=== PATIENT | female | born 1995 | race Caucasian/White ===

== ENCOUNTER 2017-12-11 15:44 | Emergency (ER) | payer SELFPAY ==
[2017-12-11] MEDS ORDERED: ACETAMINOPHEN 325 MG TABLET (FP) PO ONE (15:55)
[2017-12-11] MEDS ORDERED: IBUPROFEN 600 MG TABLET (FP) PO ONE ×2 (15:55→16:09)
[2017-12-11 15:59] VITALS: BP 144/62; TEMP 99.6; BMI 20.3
--- NOTE | 2017-12-11 16:06 | PDOC ---
History of Present Illness <Stan Pike - Last Filed: 12/11/17 19:18> - History of Present Illness Initial Comments: 12/11/17 16:05 The patient is a 22 year old female with no significant PMH who presents to our ED c/o acute onset of chills, body aches and subjective fever. H/o non- productive cough last week. Denies any nausea/vomiting, constipation/diarrhea, dysuria/hematuria. 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 No sick contacts @ home, no recent travel. Has not received the influenza vaccine. <Sara Babb - Last Filed: 12/15/17 12:14> - General Chief Complaint: Cold Symptoms Stated Complaint: COLD Time Seen by Provider: 12/11/17 15:49 Past History <Stan Pike - Last Filed: 12/11/17 19:18> - Past Medical History COPD: No - Suicide/Smoking/Psychosocial Hx Smoking History: Never smoked Have you smoked in the past 12 months: No Information on smoking cessation initiated: No Hx Alcohol Use: No Drug/Substance Use Hx: No Substance Use Type: None <Sara Babb - Last Filed: 12/15/17 12:14> - Past Medical History Allergies/Adverse Reactions: Allergies Allergy/AdvReac Type Severity Reaction Status Date / Time No Known Allergies Allergy Verified 12/11/17 15:45 Home Medications: Ambulatory Orders NK [No Known Home Medication] 12/11/17 Review of Systems - Review of Systems Constitutional: Yes: Fever HEENTM: No: Blurred Vision, Double Vision Respiratory: Yes: Cough. No: Shortness of Breath Cardiac (ROS): No: Chest Pain, Lightheadedness, Palpitations, Chest Tightness ABD/GI: No: Constipated, Diarrhea, Nausea, Vomiting <Sara Babb - Last Filed: 12/15/17 12:14> *Physical Exam - Vital Signs Last Vital Signs Temp Pulse Resp BP Pulse Ox 99.6 F 122 H 25 H 144/62 100 12/11/17 15:45 12/11/17 17:55 12/11/17 15:45 12/11/17 15:45 12/11/17 15:45 <Stan Pike - Last Filed: 12/11/17 19:18> - Vital Signs Last Vital Signs Temp Pulse Resp BP Pulse Ox 99.6 F 131 H 25 H 144/62 100 12/11/17 15:45 12/11/17 15:45 12/11/17 15:45 12/11/17 15:45 12/11/17 15:45 - Physical Exam General Appearance: Yes: Nourished, Thin HEENT: positive: EOMI, MELVINA, TM Dull. negative: TM Bulging, TM Erythema Neck: positive: Trachea midline, Supple Respiratory/Chest: positive: Lungs Clear, Normal Breath Sounds Cardiovascular: positive: S1, S2, Tachycardia. negative: JVD, Murmur Gastrointestinal/Abdominal: positive: Normal Bowel Sounds, Soft Lymphatic: negative: Adenopathy Extremity: positive: Normal Capillary Refill, Normal Inspection Integumentary: positive: Normal Color, Dry, Warm Neurologic: positive: Fully Oriented, Alert <SkinnySara - Last Filed: 12/15/17 12:14> Heart Score/ECG Review - ECG Impressions Comment:: 12/11/17 19:04 Sinus Tach HR 123, no MARIA D/STD/TWI -non ischemic ECG <SkinnySara - Last Filed: 12/15/17 12:14> ED Treatment Course - LABORATORY CBC & Chemistry Diagram: 12/11/17 17:30 12/11/17 17:30 - ADDITIONAL ORDERS Additional order review: Laboratory Results 12/11/17 12/11/17 17:30 16:29 Sodium 134 L Potassium 3.3 L Chloride 106 Carbon Dioxide 24 Anion Gap 4 L BUN 13 Creatinine 0.9 Creat Clearance w eGFR > 60 Random Glucose 91 Calcium 7.8 L Total Bilirubin 0.6 AST 18 ALT 12 Alkaline Phosphatase 31 L Total Protein 6.2 L Albumin 3.5 Urine Color Yellow Urine Appearance Clear Urine pH 6.5 Ur Specific [place] 1.020 Urine Protein Negative Urine Glucose (UA) Negative Urine Ketones Negative Urine Blood 2+ H Urine Nitrite Negative Urine Bilirubin Negative Urine Urobilinogen 0.2 Ur Leukocyte Esterase 1+ H Urine RBC 5-10 Urine WBC 2-5 Ur Epithelial Cells Few Urine Bacteria 2+ Urine HCG, Qual Negative 12/11/17 16:29 Influenza Types A,B Antigen - Final Nasopharyngeal Swab - Final 12/11/17 17:30 RBC 3.39 L MCV 89.1 MCHC 33.3 RDW 13.5 MPV 8.4 Neutrophils % No Result Required. Lymphocytes % No Result Required. - Medications Given in the ED: ED Medications Discontinued Medications Generic Name Dose Route Start Last Admin Trade Name Derek PRN Reason Stop Dose Admin Acetaminophen 650 mg 12/11/17 15:55 12/11/17 16:43 Tylenol - PO 12/11/17 15:56 650 mg ONCE ONE Administration Ibuprofen 600 mg 12/11/17 15:55 12/11/17 16:41 Motrin - PO 12/11/17 15:56 600 mg ONCE ONE Administration Sodium Chloride 1,000 ml 12/11/17 16:11 12/11/17 16:44 Normal Saline - IV 12/11/17 16:12 1,000 ml ONCE ONE Administration Sodium Chloride 1,000 ml 12/11/17 17:16 12/11/17 17:37 Normal Saline - IV 12/11/17 17:17 1,000 ml ONCE ONE Administration Sodium Chloride 1,000 ml 12/11/17 19:01 12/11/17 19:12 Normal Saline - IV 12/11/17 19:02 1,000 ml ONCE ONE Administration <Stan Pike - Last Filed: 12/11/17 19:18> - LABORATORY CBC & Chemistry Diagram: 12/11/17 17:30 12/11/17 17:30 <Sara Babb - Last Filed: 12/15/17 12:14> Medical Decision Making - Medical Decision Making 12/11/17 16:06 22 year old female with acute onset of subjective fever, myalgias. H/o cough, notes close contact with multiple people in workplaces. Tachycardic (130's) @ presentation. Frontal diagnosis: Influenza, Viral URI, less likely PE given clinical history and presentation. Will test for influenza, administer fluids, CXR, UA/urine culture. Reassess. 12/11/17 17:30 CXR negative for acute infiltrate/consolidation/effusion Patient reassessed @ bedside Remains Tachycardic (120's), tachypnea resolved Will obtain basic labs to r/o anemia, active infection + ECG 12/11/17 18:24 Remains tachycardic (120's) ECG documented in EMR section - non-ischemic CBC shows no anemia, CMP shows mild hypokalemia (3.3) - will encourage patient to increase K+ food intake 12/11/17 19:01 Patient remains tachycardic. Bedside U/S shows good contractility, hyperdynamic, no cardiac effusion. Will administer additional 1 L IV NS. UA pending. 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 Rolando Vilchis to establish primary care. It is very important that you see a doctor at least yearly for annual evaluation. Return to the Emergency Department for any new/worsening/concerning symptoms. - Post Discharge Activity Forms/Work/School Notes: Back to Work
[2017-12-11] MEDS ORDERED: ACETAMINOPHEN 325 MG TABLET (FP) ONE (16:08)
[2017-12-11] MEDS ORDERED: SODIUM CHLORIDE 0.9% 500 ML INFUS.BAG IV ONE ×3 (16:11→19:01)
--- NOTE | 2017-12-11 16:20 | PDOC ---
Attending Attestation - Resident Resident Name: Sara Babb - ED Attending Attestation I have performed the following: I have examined & evaluated the patient, The case was reviewed & discussed with the resident, I agree w/resident's findings & plan, Exceptions are as noted - HPI HPI: 12/11/17 16:16 22 F with no pmxh here with c/o cough runny nose, body aches. states runny nose began night prior, suddenly today just prior to arrival developed deep myalgia and achy bones. feels chilled. cough dry. nonproductive. no sick contacts. no rash. no travel. no urinary sxs. - Physicial Exam PE: 12/11/17 16:19 pt awake alert lungs clear bilaterally heart reg tachycardia. abd soft ntnd. ext wwp no edema. skin no rash. nuero awake alert - Medical Decision Making 12/11/17 16:19 differential uti, pneumonia, flu, other viral syndrome. plan labs ivf, cxr ua. ucg. antipyretics and fever control 12/11/17 16:33 cxr negative. 12/11/17 19:00 pt states she is feeling much better. heart rate 116, temp improved. focused ed TTE , indication tachycardia flu r/o pericardial effusion four views obtained, no pericardial effusion. good contractility. impression: normal tte. *DC/Admit/Observation/Transfer Diagnosis at time of Disposition: Viral syndrome - Discharge Dispostion Disposition: HOME Condition at time of disposition: Good - Referrals Referrals: Deng Marshall MD [Staff Physician] - - Patient Instructions Printed Discharge Instructions: How to Avoid a Cold or Flu, DI for Viral Upper Respiratory Infection -- Adult Additional Instructions: Please make an appointment with Dr. Rolando Vilchis to establish primary care. It is very important that you see a doctor at least yearly for annual evaluation. Return to the Emergency Department for any new/worsening/concerning symptoms. - Post Discharge Activity Forms/Work/School Notes: Back to Work Heart Score/ECG Review #1 ECG reviewed & interpreted by me at: 18:42 General ECG Interpretation: Normal Intervals, No acute ischemic changes Compared to previous ECG there are: Other (sinus tachycardia. 123)
[2017-12-11 16:48] LABS: PH,URINE 6.5 (4.5-8); URINE APPEARANCE Clear; URINE BILIRUBIN Negative (NEGATIVE); URINE COLOR Yellow; URINE GLUCOSE (UA) Negative (NEGATIVE); URINE KETONE Negative (NEGATIVE); URINE LEUK ESTERASE 1+ (NEGATIVE); URINE NITRITE Negative (NEGATIVE); URINE PROTEIN Negative (NEGATIVE); URINE UROBILINOGEN 0.2 (0.2-1.0)
[2017-12-11 16:55] LABS: HCG,QUALITATIVE URINE Negative
[2017-12-11 17:07] LABS: EPI CELLS FEW /HPF; URINE BACTERIA 2+ /hpf (NEGATIVE)
[2017-12-11 17:49] LABS: HEMATOCRIT 30.2 % (32.4-45.2); HEMOGLOBIN 10.1 GM/dl (10.7-15.3); MCH 29.7 pg (25.7-33.7); MCHC 33.3 g/dl (32.0-36.0); MEAN CELL VOLUME 89.1 fl (80-96); MEAN PLT VOLUME 8.4 fl (7.5-11.1); PLATELET COUNT 211 K/MM3 (134-434); RBC 3.39 M/mm3 (3.60-5.2); RDW 13.5 % (11.6-15.6); WHITE BLOOD COUNT 9.2 K/mm3 (4.0-10.8)
[2017-12-11 17:56] VITALS: PULSE 122
[2017-12-11 18:07] LABS: ALBUMIN 3.5 g/dl (3.5-5.0); ALK PHOS 31 U/L (32-92); ANION GAP 4 MMOL/L (8-16); BILIRUBIN,TOTAL 0.6 mg/dl (0.2-1.0); BLOOD UREA NITROGEN 13 mg/dl (7-18); CALCIUM 7.8 mg/dl (8.4-10.2); CHLORIDE 106 mmol/L (98-107); CO2 24 mmol/L (22-28); CREATININE 0.9 mg/dl (0.6-1.3); GLUCOSE,RANDOM 91 mg/dl (74-106); POTASSIUM 3.3 mmol/L (3.5-5.1); SGOT/AST 18 U/L (10-42); SGPT/ALT 12 U/L (10-40); SODIUM 134 mmol/L (136-145); TOT PROT 6.2 g/dl (6.4-8.3)
[2017-12-11 18:55] LABS: PLATELET ESTIMATE ADEQUATE
--- NOTE | 2017-12-12 12:18 | EKG ---
Test Reason : Blood Pressure : / mmHG Vent. Rate : 123 BPM Atrial Rate : 123 BPM P-R Int : 136 ms QRS Dur : 074 ms QT Int : 312 ms P-R-T Axes : 059 075 039 degrees QTc Int : 446 ms SINUS TACHYCARDIA OTHERWISE NORMAL ECG NO PREVIOUS ECGS AVAILABLE Confirmed by YE WILLIAM MD ([id number]) on 12/12/2017 12:18:32 PM Referred By: MD MASCORRO Confirmed By:YE WILLIAM MD
== END 2017-12-11 19:25 | disposition home or self-care (01) ==
LOC: FER 15:44
PROC: 3E0337Z Introduction of Electrolytic and Water Balance Substance into Peripheral Vein, Percutaneous Approach (ICD-10-PCS; principal; 2017-12-11)
DX: B34.9 Viral infection, unspecified (principal)
CPT/HCPCS: 36415; 71046-TC-FY; 80053; 81003; 81015; 84703; 85025; 87086; 87804; 93005; 99283-25